=== PATIENT | female | born 1975 | race Caucasian/White ===

== ENCOUNTER → 2017-03-23 | Outpatient (CLI) | payer BC | LOC: RAD 10:16 | DX: M54.5 Low back pain (principal); K59.00 Constipation, unspecified | CPT/HCPCS: 72100 ==

== ENCOUNTER 2021-12-04 10:03 | Emergency (ER) | payer BC, OTHER ==
[~2021-12-04 10:03] MED LIST: ASPIR 8181 MG PO; ASPIRIN EC81 MG PO; BENTYL10 MG PO; BUSPAR 10MG10 MG PO; CYMBALTA 30 MG30 MG PO; DULOXETINE HCL30 MG PO; ESTRACE 1 MG TAB1 MG PO; ESTRACE1 MG PO; FLAGYL500 MG PO; IMDUR ER TAB 3030 MG PO; IMDUR ER TAB 6060 MG PO; LOPRESSOR 25 MG25 MG PO; NITROSTAT0.4 MG SL; PRILOSEC10 M1 PO; RANITIDINE HCL150 MG PO; REQUIP0.25 MG PO; REQUIP0.5 MG PO; TIZANIDINE HCL2 MG PO; ZANAFLEX2 MG PO; ZANTAC 150 MG150 MG PO
[2021-12-04 11:08] LABS: HEMOGLOBIN 14.8 gm/dl (12.3-15.3); RED BLOOD COUNT 4.81 M/UL (4.00-5.10); WHITE BLOOD COUNT 10.6 K/UL (4.5-11.0)
[2021-12-04 11:36] LABS: BUN/CREATININE RATIO 17 (0-10)
[2021-12-04] MEDS ORDERED: HYDROCODON-ACE1 EAC4 PO (13:31)
[2021-12-04] MEDS ORDERED: ZOFRAN ODT 4 MG4 MG GT (13:34)
== END 2021-12-04 14:00 | disposition home or self-care (01) ==
LOC: ER1 10:03
PROVIDERS: Nurse Practitioner
DX: N20.2 Calculus of kidney with calculus of ureter (principal); K21.9 Gastro-esophageal reflux disease without esophagitis; I10 Essential (primary) hypertension; F17.210 Nicotine dependence, cigarettes, uncomplicated; Z88.6 Allergy status to analgesic agent; Z88.5 Allergy status to narcotic agent; Z20.822 Contact with and (suspected) exposure to COVID-19
CPT/HCPCS: 0240U; 71045; 80053; 81001; 82150; 82550; 82553; 83605; 83690; 83874; 84484; 85025; 87040; 87086; 93005; 96374; 96375; 99284; J1170; J1885; J2405; Q9967